=== PATIENT | male | born 1950 | race Caucasian/White ===

== ENCOUNTER 2017-12-25 16:50 | Emergency (ER) ==
[2017-12-25 17:02] VITALS: TEMP 96.8; BMI 23.3
[2017-12-25] MEDS ORDERED: LIDOCAINE HCL 1% SDV SUBCUT STA ×2 (17:10→17:11)
[2017-12-25] MEDS ORDERED: ROCEPHIN IM STA (17:11)
[2017-12-25] MEDS ORDERED: LIDOCAINE HCL 1% SDV ONE (17:12)
--- NOTE | 2017-12-25 17:36 | ED.PDOC ---
General ED Provider: Dr. ELEONORA BAINS Chief Complaint: Bite Stated Complaint: dog bite left hand wrist Time Seen by Physician: 17:00 Mode of Arrival: Walk-In Information Source: Patient Exam Limitations: No limitations Nursing and Triage Documentation Reviewed and Agree: Yes Reviewed sepsis parameters & appropriate labs ordered?: Yes (a pit bull which did not belong to the pt bitten left hand/wrist) System Inflammatory Response Syndrome: Not Applicable Sepsis Protocol: For patient's 13 years and over: Temp is 96.8 and below OR 101 and greater Pulse >90 BPM Resp >20/minute Acutely Altered Mental Status Are patient's symptoms suggestive of a new infection, such as: -Pneumonia -Skin, Soft Tissue -Endocarditis -UTI -Bone, Joint Infection -Implantable Device -Acute Abdominal Infection -Wound Infection -Meningitis -Blood Stream Catheter Infection -Unknown System Inflammatory Response Syndrome: Not Applicable Trauma/Injury Complaint Exam - Bite Injury Complaint/Exam Location of Bite: left hand wrist , please see photos before and after Bite Occured: on the street Symptoms Are: Still present Type of Bite: Reports: Pet animal Animal Immunized: Reports: Unknown Initial Severity: Moderate Current Severity: Moderate Character: Reports: Full-thickness, Laceration Aggravating: Reports: None Alleviating: Reports: None Associated Signs and Symptoms: Denies: Fever, Erythema, Drainage, Swelling, Lymphadenopathy, Numbness, Tingling, Limited ROM Related History: Reports: Unprovoked Animal Available for Observation: Yes Infection/Sepsis Risk Factors: Present: Full Thickness-Puncture Bite Findings: Present: Tenderness (,flap laceration , skin tear see photos ) Drainage: Present: None Differential Diagnoses: Laceration Review of Systems - Review Of Systems Constitutional: Reports: No symptoms Eyes: Reports: No symptoms Ears, Nose, Mouth, Throat: Reports: No symptoms Respiratory: Reports: No symptoms Cardiac: Reports: No symptoms GI: Reports: No symptoms : Reports: No symptoms Musculoskeletal: Reports: No symptoms Skin: Reports: Other (laceration) Neurological: Reports: No symptoms Endocrine: Reports: No symptoms Hematologic/Lymphatic: Reports: No symptoms All Other Systems: Reviewed and Negative Past Medical History - Past Medical History Previously Healthy: Yes Endocrine: Reports: Dyslipidemia Cardiovascular: Reports: Hypertension Respiratory: Reports: None Hematological: Reports: None Gastrointestinal: Reports: None Genitourinary: Reports: None Neuro/Psych: Reports: None Musculoskeletal: Reports: None Cancer: Reports: None - Surgical History General Surgical History: Reports: None - Family History Family History: Reports: None - Social History Smoking Status: Current every day smoker, Heavy tobacco smoker Hx Substance Use: No Alcohol Screening: Heavy - Immunizations Tetanus Shot up to Date: Yes Physical Exam - Physical Exam Appearance: Well-appearing, No pain distress, Well-nourished Eyes: LAURENT, EOMI, Conjunctiva clear ENT: Ears normal, Nose normal, Oropharynx normal Respiratory: Airway patent, Breath sounds clear, Breath sounds equal, Respirations nonlabored Cardiovascular: RRR, Pulses normal, No rub, No murmur GI/: Soft, Nontender, No masses, Bowel sounds normal, No Organomegaly Musculoskeletal: Normal strength, ROM intact, No edema, No calf tenderness Skin: Warm, Dry (laceration and skin tear pleasee photos of the left hand and wrist) Neurological: Sensation intact, Motor intact, Reflexes intact, Cranial nerves intact, Alert, Oriented Psychiatric: Affect appropriate, Mood appropriate Procedures - Laceration/Wound Repair No standard instances Wound Description: Flap, Skin tear, Other (puncture wounds see photos) Wound Length (cm): 3cm no f/b see photos Wound Width: 2 cm Wound Explored: Clean Wound Irrigated: Yes Wound Prep: Saline, Hibiclens Anesthesia: Lidocaine (plain 1 ml) Wound Debrided: Minimal Undermining: Moderate Wound Margins: Revised, [place] border aligned, Flaps aligned Wound Repaired With: Sutures, [place] Suture Size and Type: 3 prolene Number of Sutures: 7 Number of Osvaldo: 15 Layer Closure?: No Sterile Dressing Applied?: Yes Critical Care Note - Critical Care Note Total Time (mins): 0 Course - Course Orders, Labs, Meds: Orders Category Date Time Status Ceftriaxone Sodium [Rocephin] MEDS 12/25/17 17:11 Stat 1 gm IM ONCE STA Lidocaine HCl/Pf [Lidocaine HCl 1% Sdv] MEDS 12/25/17 17:12 Discontinued 5 ml .ROUTE .STK-MED ONE Lidocaine HCl/Pf [Lidocaine HCl 1% Sdv] MEDS 12/25/17 17:10 Stat 5 ml SUBCUT ONCE STA Lidocaine HCl/Pf [Lidocaine HCl 1% Sdv] MEDS 12/25/17 17:11 Stat 5 ml SUBCUT ONCE STA Medications Discontinued Medications Generic Name Dose Route Start Last Admin Trade Name Freq PRN Reason Stop Dose Admin Ceftriaxone Sodium 1 gm 02/12/18 17:11 Rocephin IM 12/25/17 17:12 ONCE STA Lidocaine HCl 5 ml 12/25/17 17:10 Lidocaine Hcl 1% Sdv SUBCUT 12/25/17 17:11 ONCE STA Lidocaine HCl 5 ml 12/25/17 17:11 Lidocaine Hcl 1% Sdv SUBCUT 12/25/17 17:12 ONCE STA Vital Signs: Temp Pulse Resp BP Pulse Ox 12/25/17 16:55 96.8 F L 87 16 156/79 H 98 Departure - Departure Time of Disposition: 17:40 Disposition: HOME SELF-CARE Discharge Problem: Laceration of left hand Qualifiers: Encounter type: initial encounter Foreign body presence: without foreign body Qualified Code(s): S61.412A - Laceration without foreign body of left hand, initial encounter Instructions: Laceration (ED), Animal Bite (ED) Condition: Good Pt referred to PMD for follow-up: Yes IPMP verified?: No Additional Instructions: Please call your Family Physician as soon as possible to schedule a follow-up appointment.please keep an eye on this wound this was an extensive laceration we sutured and stapled it but dog bites are known to cause abscess. abscess in the hand can be very serious . be very careful and see your MD ROYA Prescriptions: Ciprofloxacin HCl [Cipro] 500 mg PO Q12HR #10 tablet Allergies/Adverse Reactions: Allergies Penicillins Adverse Reaction (Verified 12/25/17 16:53) Rash Home Medications: Ambulatory Orders Baclofen 20 mg PO BID 12/25/17 Ciprofloxacin HCl [Cipro] 500 mg PO Q12HR #10 tablet 12/25/17 Lisinopril 10 mg PO DAILY 12/25/17 Simvastatin [Zocor] 20 mg PO BEDTIME 12/25/17
--- NOTE | 2017-12-25 18:01 | DI ---
EXAM: Left hand; PA, lateral, and oblique views HISTORY: Dog bite FINDINGS: There is soft tissue gas over the dorsum of the metacarpals. There are multiple samantha ov er the dorsum of the distal forearm and carpus. The bones are osteopenic. There is mild diffuse oste oarthritis throughout the hand carpus. OPINION: Soft tissue gas and probable lacerations closed with samantha. No acute fracture, subluxation, or rad iopaque foreign bodies. Osteopenia and mild diffuse osteoarthritis.
--- NOTE | 2017-12-25 18:05 | DI ---
EXAM: Three views left wrist. HISTORY: Dog bite. FINDINGS: There is overlying artifact which limits the exam. The visualized joint spaces are maintain ed. The visualized bones are intact. There is subcutaneous air in the hand and wrist. Impression: No evidence of fracture. Subcutaneous air in the left hand and wrist.
[2017-12-25 18:21] VITALS: BP 142/76
== END 2017-12-25 18:22 | disposition home or self-care (01) ==
LOC: ED 16:50
DX: S61.452A Open bite of left hand, initial encounter (principal); S61.552A Open bite of left wrist, initial encounter; W54.0XXA Bitten by dog, initial encounter; F17.210 Nicotine dependence, cigarettes, uncomplicated
CPT/HCPCS: 96372; 99283